=== PATIENT | male | born 1965 | race Caucasian/White ===

== ENCOUNTER 2019-04-15 06:26 | Day surgery (SDC) | payer OTHER ==
[~2019-04-15] VITALS: Ht 190.5 cm; Wt 86.9 kg
[2019-04-15 07:28] VITALS: Ht 190.5 cm; Wt 86.9 kg
[2019-04-15] MEDS ORDERED: tums (07:28)
[2019-04-15] MEDS ORDERED: lexapro (07:28)
[2019-04-15] MEDS ORDERED: trazodone (07:28)
[2019-04-15] MEDS ORDERED: PROPOFOL 80 ML ONE (07:35)
[2019-04-15 07:45] VITALS: BP 119/74; PULSE 53; RESP 18
--- NOTE | 2019-04-15 08:54 | PAC ---
Date/Time of Note Date/Time of Note DATE: 04/15/19 TIME: 08:54 Post-Anesthesia Notes Post-Anesthesia Note Last documented vital signs VSS Activity: WNL Respiratory function: WNL Cardiovascular function: WNL Mental status: Baseline Pain reasonably controlled: Yes Hydration appropriate: Yes Nausea/Vomiting absent: Yes JESSE CARMONA MD Apr 15, 2019 08:54
--- NOTE | 2019-04-15 08:54 | PREAC ---
Date/Time of Note Date/Time of Note DATE: 04/15/19 TIME: 08:52 Anesthesia Eval and Record Evaluation Time Pre-Procedure Interview DATE: 04/15/19 TIME: 08:52 Age 53 Sex male NPO: 8 hrs Preoperative diagnosis Reflux, Screening Planned procedure EGD, Colonoscopy Past Medical History Past Medical History: None Surgery & Anesthesia Issues No known issue Meds Anticoagulation: No Beta Yaakov within 24 hr: No Reason Beta Yaakov not given: Pt. not on B-Yaakov Reported Medications [tums] No Conflict Check 04/15/19 [trazodone] No Conflict Check 04/15/19 [lexapro] No Conflict Check 04/15/19 Meds reviewed: Yes Allergies Coded Allergies: No Known Allergy (Unverified , 04/15/19) Allergies Reviewed: Yes Labs/Studies Labs Reviewed: Reviewed by anesthesiologist test: N/A Pre-procedure Exam Airway: Adequate mouth opening Mallampati: Mallampati II Teeth: Normal Lung: Normal Heart: Normal ASA Physical Status ASA physical status: 2 Emergency: None Planned Anesthetic General/MAC: MAC Pre-operative Attestations Prior to commencing anesthesia and surgery, the patient was re-evaluated, there was verification of: *The patient's identity *The results of appropriate recent lab work and preoperative vital signs *The above evaluation not changing prior to induction *Anesthetic plan, risk benefits, alternative and complications discussed with patient/family; questions answered; patient/family understands, accepts and wishes to proceed. JESSE CARMONA MD Apr 15, 2019 08:54
[2019-04-15 09:37] VITALS: BP 105/71; PULSE 66; RESP 16
== END 2019-04-15 15:39 | disposition home or self-care (01) ==
LOC: GIL 06:26
PROVIDERS: ATTEND Internal Medicine Gastroenterology
DX: Z12.11 Encounter for screening for malignant neoplasm of colon (principal); D12.5 Benign neoplasm of sigmoid colon; K64.8 Other hemorrhoids; K64.4 Residual hemorrhoidal skin tags; K21.0 Gastro-esophageal reflux disease with esophagitis; K29.60 Other gastritis without bleeding
CPT/HCPCS: 88305